=== PATIENT | male | born 1975 | race Caucasian/White ===

== ENCOUNTER → 2018-03-15 12:20 | Outpatient (CLI) | payer OTHER, SELFPAY ==
[2014-08-05 12:42] VITALS: BMI 29.7
--- NOTE | 2018-03-15 12:25 | RAD_ITS ---
HISTORY: CERVICALGIA, NKI COMPARISON: None FINDINGS: XR Spine Cervical 6 views Straightening of the cervical spine with mild reversal of the normal cervical lordosis at the C4-5 level. Cervical vertebra are normal in height. No fracture or suspicious bony lesion. C5-6 and C6-7 mild disc space narrowing. C5-6 foraminal narrowing on the right secondary to uncovertebral spurring. The C1-C2 relationship is unremarkable. RAD/Cerv Spine 4 or 5 Views IMPRESSION: 1. C5-6 and C6-7 degenerative disc disease with loss of the normal cervical lordosis. C5-6 foraminal narrowing on the right. at 0422 Reported and signed by: Lester Dougherty MD Electronically Signed: Lester Dougherty, at 4:20 EST Tel , Service support ,
--- OUTSIDE RECORDS SUMMARY | 2018-05-10 10:59 | XMS RPT_ITS ---
:1975 Author Organization [facility] Care Team Providers Name Role Phone Isaiah Asif Attending Unavailable Isaiah Asif Referring Unavailable Moody Tijerina Primary Care Unavailable Isaiah Asif Attending Unavailable Isaiah Asif Referring Unavailable Moody Tijerina Primary Care Unavailable PROBLEMS PROBLEMS No Problem Records FoundPROCEDURES PROCEDURES No Procedure Records FoundRESULTS RESULTS SPINE CERVICAL Observed: 04/01/2018 Status: F Source: [place] (ROUTINE) 11:08 AM [facility] REPOSITORY [facility] Imaging Services [address] [place] [address] Spine Cervical (Routine) MR#: [id number] Acct: [id number] Name: MARYLU TIJERINA Rep #: [id number] : 1975 M 43 From: Piotr King MD PCP: Moody Tijerina MD Status: REG CLI Study: Spine Cervical (Routine) Date of Exam: 04/01/18 Exam# [id number] Ordering Dr: Isaiah Asif MD STUDY: MRI CERVICAL SPINE WITHOUT CONTRAST REASON FOR EXAM: Male, 43 years old. Right arm pain and neck pain TECHNIQUE: Standardized fat and water weighted pulse sequences were obtained in the sagittal and axial planes. COMPARISON: None FINDINGS: Normal foramen magnum and brainstem-cervical cord junction. Normal craniovertebral junction. Normal anterior atlantoaxial articulation. Normal odontoid process. There is reversal of the normal cervical lordosis. Normal vertebral bodies and posterior osseous elements. C2-3: Normal endplates. Normal disc height, signal and morphology. Normal central canal and intervertebral neural foramina. C3-4: Normal endplates. Normal disc height, signal and morphology. Normal central canal and intervertebral neural foramina. C4-5: Normal endplates. Normal disc height, signal and morphology. Normal central canal and intervertebral neural foramina. C5-6: Disc osteophyte complex and central disc protrusion with deformity of the ventral cord, moderate central canal stenosis, and severe right and moderate left foraminal stenoses. C6-7: Disc osteophyte complex with severe right and mild left foraminal stenoses. C7-T1: Normal endplates. Normal disc height, signal and morphology. Normal central canal and intervertebral neural foramina. No intrinsic cord signal abnormalities are seen at this time. Normal visualized soft tissue structures. MRI/Spine Cervical (Routine) IMPRESSION: Multilevel degenerative disease as described. Severe right foraminal stenoses at the C5-6 and C6-7 levels. Ventral cord deformity at C5-6 level. No intrinsic cord signal abnormalities are seen at this time. Electronically Signed: Piotr King MD at 12:42 EST Tel , Service support , CC: Moody Tijerina MD; Isaiah Asif MD Electronic Design Engineer: Signed CERV SPINE 4 OR 5 Observed: 03/15/2018 Status: F Source: [place] VIEWS 12:25 PM [facility] REPOSITORY [facility] Imaging Services [address] [place] [address] Cerv Spine 4 or 5 Views MR#: [id number] Acct: [id number] Name: MARYLU TIJERINA Rep #: [id number] : 1975 M 43 From: Lester Dougherty MD PCP: Moody Tijerina MD Status: REG CLI Study: Cerv Spine 4 or 5 Views Date of Exam: 03/15/18 Exam# [id number] Ordering Dr: Isaiah Asif MD HISTORY: CERVICALGIA, NKI COMPARISON: None FINDINGS: XR Spine Cervical 6 views Straightening of the cervical spine with mild reversal of the normal cervical lordosis at the C4-5 level. Cervical vertebra are normal in height. No fracture or suspicious bony lesion. C5-6 and C6- 7 mild disc space narrowing. C5-6 foraminal narrowing on the right secondary to uncovertebral spurring. The C1-C2 relationship is unremarkable. RAD/Cerv Spine 4 or 5 Views IMPRESSION: 1. C5-6 and C6-7 degenerative disc disease with loss of the normal cervical lordosis. C5-6 foraminal narrowing on the right. at 0422 Reported and signed by: Lester Dougherty MD Electronically Signed: Lester Dougherty, at 4:20 EST Tel , Service support , CC: Moody Tijerina MD; Isaiah Asif MD Electronic Design Engineer: Signed ALLERGIES ALLERGIES DATE TYPE / CODE NAME / CODE REACTION SEVERITY SOURCE 08/05/2014 Drug No Known Unknown [facility] Allergy/4160 Allergies/F00 Hospital 06741(SNOMED [id number](RXNOR Repository CT) M) ENCOUNTERS ENCOUNTERS ADMIT/DISCHARGE ACCOUNT ADMITTING ENCOUNTER LOCATION SOURCE NUMBER CLASS 04/01/2018 [id number] Ambulatory [place] [facility] 2 [facility] ing:MRI Repository 03/15/2018 [id number] Ambulatory [place] 7 [facility] ing:MTRAD Repository PAYERS PAYERS ENCOUNTER GUARANTOR PAYER SUBSCRIBER SOURCE 04/01/2018 MARYLU Martinez Primary Insurance:[facility] Banerjee [id number] [employer] [facility] MILLERDOB: [facility] [id number] Number: Repository [id number]: [phone] [id number] [phone] (HP) Date:[id number] [address], [place] [address]RQ: CHECK WEBSITE 04/01/2018 Secondary NOT GIVENUNK [place] Insurance:SELF PAY [facility] Number: Effective Repository Date:2018-03-25 03/15/2018 MARYLU Martinez Primary Insurance:[facility] TIJERINA315 [facility]: [facility] 1773-26-[place], [place] Number: Repository [id number]: [phone] [id number] [phone] () Date:4189-20-31PA [address] [address], [place] [address]ET: CHECK WEBSITE 03/15/2018 Secondary NOT GIVENDILCIA Banerjee Insurance:SELF PAY [facility] Number: Effective Repository Date:2018-03-15
== END ==
PROVIDERS: Family Provider Family Medicine; PCP Family Medicine; Referring Provider Family Medicine; Visit Provider Family Medicine
DX: M54.2 Cervicalgia (principal)
CPT/HCPCS: 72050

== ENCOUNTER → 2018-04-01 10:51 | Outpatient (CLI) | payer OTHER, SELFPAY ==
--- NOTE | 2018-04-01 11:07 | MRI_ITS ---
STUDY: MRI CERVICAL SPINE WITHOUT CONTRAST REASON FOR EXAM: Male, 43 years old. Right arm pain and neck pain TECHNIQUE: Standardized fat and water weighted pulse sequences were obtained in the sagittal and axial planes. COMPARISON: None FINDINGS: Normal foramen magnum and brainstem-cervical cord junction. Normal craniovertebral junction. Normal anterior atlantoaxial articulation. Normal odontoid process. There is reversal of the normal cervical lordosis. Normal vertebral bodies and posterior osseous elements. C2-3: Normal endplates. Normal disc height, signal and morphology. Normal central canal and intervertebral neural foramina. C3-4: Normal endplates. Normal disc height, signal and morphology. Normal central canal and intervertebral neural foramina. C4-5: Normal endplates. Normal disc height, signal and morphology. Normal central canal and intervertebral neural foramina. C5-6: Disc osteophyte complex and central disc protrusion with deformity of the ventral cord, moderate central canal stenosis, and severe right and moderate left foraminal stenoses. C6-7: Disc osteophyte complex with severe right and mild left foraminal stenoses. C7-T1: Normal endplates. Normal disc height, signal and morphology. Normal central canal and intervertebral neural foramina. No intrinsic cord signal abnormalities are seen at this time. Normal visualized soft tissue structures. MRI/Spine Cervical (Routine) IMPRESSION: Multilevel degenerative disease as described. Severe right foraminal stenoses at the C5-6 and C6-7 levels. Ventral cord deformity at C5-6 level. No intrinsic cord signal abnormalities are seen at this time. Electronically Signed: Piotr King MD at 12:42 EST Tel , Service support ,
--- OUTSIDE RECORDS SUMMARY | 2018-07-03 23:54 | XMS RPT_ITS ---
:1975 Author Organization [facility] Care Team Providers Name Role Phone Isaiah Asif Attending Unavailable Isaiah Asif Referring Unavailable Moody Tijerina Primary Care Unavailable Isaiah Asif Attending Unavailable Isaiah Asif Referring Unavailable Moody Tijerina Primary Care Unavailable PROBLEMS PROBLEMS No Problem Records FoundPROCEDURES PROCEDURES No Procedure Records FoundRESULTS RESULTS SPINE CERVICAL Observed: 04/01/2018 Status: F Source: [place] (ROUTINE) 11:08 AM [facility] REPOSITORY [facility] Imaging Services [address] [place] [address] Spine Cervical (Routine) MR#: [id number] Acct: [id number] Name: MARYLU TIJERINA Rep #: [id number] : 1975 M 43 From: Piotr King MD PCP: Moody Tijerina MD Status: REG CLI Study: Spine Cervical (Routine) Date of Exam: 04/01/18 Exam# [id number] Ordering Dr: Isaiah Asif MD ADDENDUM by Piotr King MD on 04/04/18 at 0739 ADDENDUM Comparison study has been made available dated 01/18/2011. Degenerative disc disease at the C5-6 level is unchanged. Degenerative disc disease at the C6-7 level has progressed. There has been worsening of right-sided neural foraminal stenosis at that level compared to prior study. Electronically Signed: Piotr King MD at 7:39 EST Tel , Service support , 04/04/18 0739 Date cc: Moody Tijerina MD; Isaiah Asif MD * Signed ADDENDUM by Piotr King MD on 04/04/18 at 0739 MRI/Spine Cervical (Routine) 04/04/18 0745 Date cc: Moody Tijerina MD; Isaiah Asif MD * Signed STUDY: MRI CERVICAL SPINE WITHOUT CONTRAST REASON [...] CC: Moody Tijerina MD; Isaiah Asif MD Auto Body Technician: Signed CERV SPINE 4 OR 5 Observed: 03/15/2018 Status: F Source: [facility] 12:25 PM [facility] REPOSITORY [facility] Imaging Services [address] [place] [address] Cerv Spine 4 or 5 Views MR#: [id number] Acct: [id number] Name: MARYLU TIJERINA Juan Rep #: [id number] : 1975 M 43 From: Lester Dougherty MD PCP: Moody Tijerina MD Status: REG CLI Study: Cerv Spine 4 or 5 Views Date of Exam: 03/15/18 Exam# [id number] Ordering Dr: Isaiah Asif MD HISTORY: CERVICALGIA, [...] CC: Moody Tijerina MD; Isaiah Asif MD Auto Body Technician: Signed ALLERGIES ALLERGIES DATE TYPE / CODE NAME / CODE REACTION SEVERITY SOURCE 08/05/2014 Drug No Known Unknown [facility] Allergy/4160 Allergies/F00 Hospital 81524(SNOMED [id number](RXNOR Repository CT) M) ENCOUNTERS ENCOUNTERS ADMIT/DISCHARGE ACCOUNT ADMITTING ENCOUNTER LOCATION SOURCE NUMBER CLASS 04/01/2018 [id number] Ambulatory [place] 2 [facility] ing:MRI Repository 03/15/2018 [id number] Ambulatory [place] [facility] 7 [facility] ing:MTRAD Repository PAYERS PAYERS ENCOUNTER GUARANTOR PAYER SUBSCRIBER SOURCE 04/01/2018 MARYLU Martinez Primary Insurance:[facility] Banerjee [id number] [facility] 1708-48-[place] Number: Repository [id number]: 330 [id number] (HP) Date:4238-27-96FO [address] [address], [place] [address]NC: CHECK WEBSITE 04/01/2018 Secondary NOT GIVENUNK [place] Insurance:SELF PAY [facility] Number: Effective Repository Date:2018-03-25 03/15/2018 MARYLU Martinez Primary Insurance:[facility] TIJERINA315 [facility] [id number] Number: Repository [address]Wfx: 330 [id number] (HP) Date:1507-01-21PS [address] [address], [place] [address]MP: CHECK WEBSITE 03/15/2018 Secondary NOT GIVENUNK [place] Insurance:SELF PAY [facility] Number: Effective Repository Date:2018-03-15
== END ==
PROVIDERS: Family Provider Family Medicine; PCP Family Medicine; Referring Provider Family Medicine; Visit Provider Family Medicine
DX: R93.89 Abnormal findings on diagnostic imaging of other specified body structures (principal)
CPT/HCPCS: 72141

== ENCOUNTER 2018-09-02 08:30 | Outpatient (RCR) | payer OTHER, SELFPAY ==
--- NOTE | 2018-08-12 16:58 | HP.PTEVAL_ITS ---
Patient's Visit Information MARYLU TIJERINA is a 43 year old M referred to Physical Therapy by Zac Blanca MD with a diagnosis of CERVICAL STENOSIS.. Date of Evaluation: 08/12/18 Physical Therapist: Jody Montalvo PT, Cert MDT - Visit Plan Frequency: 2-3x /Week Duration: 4-6 Weeks Plan: POSTURE CORRECTION/STRENGTHENING, INSTRUCTION IN APPROPRIATE BODY MECHANICS AND ACTIVITY MODIFICATIONS. CERVICAL ISOMETRICS/ROM. JEFFRY UE ROM, STRETCHING AND STRENGTHENING. HEP INSTRUCTION. 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 CURRENTLY OFF WORK FOR NECK AND HAS BEEN OFF SINCE JULY 15 2018. Disability: NO. Present symptoms: JEFFRY SHOULDER PAIN LEFT > RIGHT. LEFT NECK/SHOULDER BLADE AREA BURNING. JEFFRY NECK ACHING. HEADACHES - INTERMITTENT NOW. Present since: YEARS. Pain Scale: Worst - 4/10 Least - 2/10. Currently: 2/10. Commenced as a result of: NO APPARENT REASON. Symptoms at onset: RIGHT SHOULDER. Worse: FIRST THING IN THE MORNING, FOLDING CLOTHES - TRYING TO PUT CHIN TO CHEST, STRETCHING NECK ANY DIRECTION, LIFTING/PUSHING/PULLING. Better: HEAT, MOVING AROUND IN MORNING, HOT SHOWER, MUSCLE RELAXER. HAS HYDROCODONE BUT NOT USING IT. Disturbed sleep: YES. Previous history/Previous treatment: CHIROPRACTOR - OFF AND ON FOR YEARS BUT NOT FOR ABOUT 8 YEARS. Dizziness: HAS HAPPENED TWICE GETTING UP FAST. Tinnitis: NO. Nausea: NO. Shortness of Breath: NO. Difficulty Swollowing: YES - GETTING BETTER. Gait: NORMAL. Accidents: NO. Unexplained weight loss: NO. Imaging: NO IMAGING SINCE THE SURGERY. NECK MRI BEFORE SURGERY: Severe right foraminal. stenoses at the C5-6 and C6-7 levels. Ventral cord deformity at C5-6. level. No intrinsic cord signal abnormalities are seen at this time. PMH/Recent major surgery: CHRONIC LBP - NO SURGERY - DID TRY PT HERE AT [facility]. HTN. PLOF (Prior Level of Function): HAS BEEN LIMITED IN LIFTING OVER-HEAD FOR A LONG TIME. 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 OTHER: PATIEN IS S/P ACDF JULY 16 2018. PATIENT REPORTS HE OVER DID IT TRYING TO WORK IN HIS WORKSHOP AFTER SURGERY AND HE WAS DOWN FOR ABOUT 3 DAYS. - Objective Sitting Posture/Standing Posture: POOR. PATIENT IS VERY SLOUCHED THORUGHOUT SESSION AND ONLY PARTIALLY ABLE TO CORRECT WITH CUEING. FORWARD HEAD, ROUNDED SHOULDERS AND ROUNDED BACK. Active Correction of posture: NE. Other Observations: INDEP GAIT AND TRANSFERS. Motor deficit: JEFFRY SHOULDER WEAKNESS GROSSLY 4/5 WITH MMT'ING BUT OTHERWISE GOOD STRENGTH. 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 PATIENT REPORTED A LONG HISTORY OF RIGHT UE SX'S BEFORE SX BUT MORE LEFT SHOULDER PAIN THAN RIGHT SINCE SURGERY. Sensory deficit: JEFFRY UE LIGHT TOUCH SENSATION INTACT AND SYMMETRICAL. ROM deficit: JEFFRY SHOULDER ELEVATION DECREASED BY ABOUT 10% FROM FULL ELEVATION. ARMS WERE TESTED ONE AT A TIME AND PATIENT DENIED PAIN WITH TESTING. INSTRUCTED PATIENT TO AVOID OVER HEAD REACHING WITH BOTH ARMS AT THE SAME TIME FOR NOW. Reflexes: JEFFRY UE'S 1/2. Dural Signs: NEGATIVE. Cervical Mvmt Loss: Flex: MIN. Pro: NIL. Ext: MOD. Ret: YOLI. RSB: MOD. LSB: MOD. R Rot: MOD. L Rot: YOLI. SOME INCREASED PAIN WITH CERVICAL ROM TESTING ALL PLANES ESPECIALLY LEFT ROTATION. Postural strength: POOR. OTHER: INCISION LOOKS GOOD WITHOUT ANY SIGNS OF INFECTION. - Goals Goal 1:: DECREASE C/O NECK/SHOULDER PAIN Goal Time Frame: 4-6 Weeks Goal 2:: IMPROVE LIFTING, WORK, RECREATIONAL, REACHING, PUSHING, PULLING, ADL AND SLEEP FUNCTION. Goal Time Frame: 4-6 Weeks Goal 3:: IMPROVE NECK FUNCTIONAL ROM Goal Time Frame: 4-6 Weeks Goal 4:: IMPROVE UPPER BODY FUNCTIONAL STRENGTH Goal Time Frame: 4-6 Weeks Goal 5:: INDEP HEP Goal Time Frame: 4-6 Weeks - Rehabilitation Potential Rehabilitation Potential: Fair - Anticipated Interventions Patient/Client Instruction: Educate patient on: Condition, Plan of Care, Risk Factors, Benefits of Fitness Program For the Purpose of:: To improve self management Therapeutic Exercise to Include: Strength training, Body mechanics, Postural training, Flexibilty training, Active ROM, Scapular Strength/Stabilization For the Purpose of:: To decrease pain, To increase ROM, To improve muscle performance and motor function, To increase tolerance to activity/condition/position, To improve ability of physical actions for home/community/work/leisure, To decrease soft tissue restriction Thank you for the opportunity to evaluate your patient. For Medicare and Medicare HMO plans, please review the plan of care and approve it. It will need to be FAXED BACK to us at [phone] for Medicare purposes. For Medicare only, by signing this I certify the plan of care. Please let me know if there are questions or concerns regarding this plan of care. Physician Signature: Date:
--- NOTE | 2018-09-02 09:26 | HP.PTDCSUM ---
HP - PT D/C Summary It has been my pleasure to treat MARYLU TIJERINA under orders from Zac Lezama MD, for the diagnosis of CERVICAL STENOSIS. for a total of 8 visit(s). Discharge Date: Please see the following information for a summary of their discharge status. - Subjective Subjective: PATIENT STATES I'M BETTER. ABOUT 5 DAYS AGO HAD TO TAKE OUT A PIPE WITH PIPE WRENCHES AND DID HAVE SOME NUMBNESS AND TINGLING IN DIGITS 3 AND 4 - WENT AWAY AN HOUR OR TWO LATER. ALSO ACHY SUNDAY BUT GONE OVER THE WEEKEND. PATIENT REPORTS HE FEELS LIKE HE CAN CONTINUE HIS EX'S INDEP'LY AT THIS POINT. 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 FOLLOW UP PENDING WITH DR. LEZAMA NEXT WEEK. - Pain Neck Pain Intensity (Out of 10): 0 - Overall Improvement % Improvement: 85 - Objective Objective/Function: PATIENT HAS MADE GREAT PROGRESS TOWARD ALL PHYSICAL THERAPY GOALS HOWEVER THIS PT CAUTIONED PATIENT AGAINST HEAVY WORK UNTIL CLEARED BY SURGEON AFTER X-RAYS NEXT WEEK. Sitting Posture/Standing Posture: POOR. PATIENT IS SLOUCHED THORUGHOUT SESSION BUT NOW ABLE TO FULLY CORRECT WITH CUEING. Other Observations: INDEP GAIT AND TRANSFERS. Motor deficit: PATIENT IS RIGHT HAND DOMINANT AND RIGHT RUBBER PROCESS HAND STRENGTH 140LBS, LEFT 140 LBS. ROM deficit: JEFFRY SHOULDER ROM IS FULL NOW AND NO C/O PAIN WITH TESTING. Cervical Mvmt Loss: Flex: NIL. Pro: NIL. Ext: MIN TO MOD. Ret: MOD. RSB: MOD. LSB: MOD. R Rot: MIN TO MOD. L Rot: MOD. LEFT ROTATION AND SB A LITTLE MORE LIMITED THAN RIGHT. ONLY TIGHTNESS REPORTED NOT PAIN WITH TESTING. Postural strength: FAIR. OTHER: INCISION LOOKS GOOD WITHOUT ANY SIGNS OF INFECTION. CERVICAL OSWESTRY SCORE HAS IMPROVED FROM 15 TO 7. - Goals Goal 1:: DECREASE C/O NECK/SHOULDER PAIN Goal Progress: Goal Met Goal 2:: IMPROVE LIFTING, WORK, RECREATIONAL, REACHING, PUSHING, PULLING, ADL AND SLEEP FUNCTION. Goal Progress: Goal Met Goal 3:: IMPROVE NECK FUNCTIONAL ROM Goal Progress: Goal Met Goal 4:: IMPROVE UPPER BODY FUNCTIONAL STRENGTH Goal Progress: Goal Met Goal 5:: INDEP HEP Goal Progress: Goal Met - Plan Plan: D/C TO INDEP HEP AND FOLLOW UP WITH SURGEON. - D/C Information If there are questions or concerns regarding this patient's physical therapy, please feel free to call me at [phone]. Thank you for the referral of this patient. Sincerely, Jody Montalvo PT, Cert MDT
== END 2018-09-02 19:00 | disposition home or self-care (01) ==
LOC: PT 08:30
PROVIDERS: Family Provider Family Medicine; PCP Family Medicine; Referring Provider Neurological Surgery; Visit Provider Neurological Surgery
DX: M48.02 Spinal stenosis, cervical region (principal)
CPT/HCPCS: 97110; 97162; 97530

== ENCOUNTER → 2018-09-03 10:25 | Outpatient (CLI) | payer OTHER, SELFPAY ==
[2014-08-05 12:42] VITALS: BMI 29.7
--- NOTE | 2018-09-03 10:29 | RAD_ITS ---
STUDY: X-RAY - CERVICAL SPINE REASON FOR EXAM: Male, 43 years old. Postoperative surgery TECHNIQUE: 4 view(s) of the cervical spine were obtained. COMPARISON: March 15, 2018 cervical spine x-ray FINDINGS: There are degenerative changes of the anterior atlantoaxial articulation. Normal odontoid process. There is straightening of the normal cervical lordosis. There is a spinal fusion with an anterior plate C5-C6. There is a disc spacer. Normal disc space heights. Normal visualized intervertebral neuroforamina. There is mild prevertebral soft tissue swelling at the level of the spinal fusion. RAD/Cerv Spine 2 or 3 Views IMPRESSION: Postoperative change. No evidence of acute loss of height or alignment. Electronically Signed: Taylor Hendricks MD at 2:22 EDT Tel , Service support ,
== END ==
PROVIDERS: Family Provider Family Medicine; PCP Family Medicine; Referring Provider Neurological Surgery; Visit Provider Neurological Surgery
DX: M48.02 Spinal stenosis, cervical region (principal)
CPT/HCPCS: 72040

== ENCOUNTER 2019-04-30 15:08 | Observation (INO) | payer OTHER, SELFPAY ==
[2019-04-30] VITALS (9 sets, daily range): BP systolic 104–176; BP diastolic 79–105; PULSE 63–116; RESP 16–22; TEMP 36.4–36.8; O2SAT 95–98; BMI 36.0; BMI 34.7
--- NOTE | 2019-04-30 15:21 | RAD_ITS ---
STUDY: X-RAY CHEST REASON FOR EXAM: Male, 44 years old. LEFT SIDE CHEST PAIN THAT STARTED THIS MORNING TECHNIQUE: Single AP portable view of the chest. COMPARISON: Comparison is made with prior study dated June 27, 2010. FINDINGS: EKG electrodes are seen. The lungs are clear and expanded. There is no demonstrated pleural abnormality. Normal size heart. Normal mediastinum and tahir. Normal visualized pulmonary arteries. Normal visualized aortic arch and descending thoracic aorta. Normal visualized thoracic spine. Normal visualized ribs, clavicles, and shoulders. There is no demonstrated abnormality of the visualized soft tissue structures of the upper abdomen. RAD/Chest 1 View (Portable) IMPRESSION: Normal x-ray examination of the chest. Electronically Signed: Mingo Whitehead, at 15:48 EST , Service support ,
--- NOTE | 2019-04-30 15:21 | EKG12_ITS ---
Test Reason : CP Blood Pressure : / mmHG Vent. Rate : 107 BPM Atrial Rate : 107 BPM P-R Int : 150 ms QRS Dur : 104 ms QT Int : 352 ms P-R-T Axes : 059 071 030 degrees QTc Int : 469 ms Sinus tachycardia Otherwise normal ECG Confirmed by MIL CARDENAS, JOYA ([id number]), movie editor EMBER FUENTES ([id number]) on 05/02/2019 10:05:19 AM Referred By: Isaiah Asif Confirmed By:GARRISON JAEGER MD
--- NOTE | 2019-04-30 15:23 | ED.DCSUM_ITS ---
- ER Visit Summary Date of Service: 04/30/19 Chief Complaint: [Chest pain History of Present Illness: The patient is a 44 M [presents with chest pain that started between 9 and 10 AM this morning. Patient states that it feels like a pinch but it can last for long periods of time. Patient states he just does not feel right. Patient has a history of GERD but this feels different. He at times feels somewhat sweaty but is not sure if that is because he is anxious. Patient has significant family history of heart disease and had a heart cath about 10 years ago that was normal. Patient has history of hypertension. Patient does not smoke and he denies illicit drug use. Patient had a cervical fusion in July 2018. No recent travel or surgery. Only he rates his pain a 4 5 out of 10 and it is left chest anterior without any radiation.] Physical Examination: [HEENT-PERRLA, EOMI. Cranial nerves II through XII grossly intact. TMs clear. Mucous membranes moist. No adenopathy. Cardiovascular-regular rate and rhythm without murmur or ectopy Lungs-clear to auscultation, chest wall stable without crepitus or subcu emphysema Abdomen-normoactive bowel sounds, soft, nontender, no rebound or rigidity, no peritoneal signs. Extremities-intact ?4, normal range of motion, normal pulses, atraumatic] Test Results: [EKG obtained on arrival showed sinus tachycardia with a ventricular rate of 107 bpm with no acute segment changes. CBC with it was normal. Chemistries unremarkable. BUN was 17 and creatinine 1.32. Troponin is less than 0.015. D-dimer was 0.238. Chest x-ray showed nothing acute.] Emergency Department Course and Treatment: [Placed on a computerized mill recorder on arrival. Patient given aspirin. Patient given sublingual nitro x3 with no significant improvement in his discomfort. Although on repeat examination he states that maybe does feel little bit better] Treatment Plan: [Admit for further work-up and evaluation of his chest pain] Disposition: [Admit] Impression: [Chest pain-rule out acute coronary syndrome] This note was generated with [employer]Card[employer] software. It may contain incorrect words, spelling, and punctuation that were not noted in review of the chart prior to signing ED Disposition - Plan for ED Patient: Referrals: Isaiah Asif MD [Primary Care Provider] -
[2019-04-30 15:45] LABS: Absolute Lymphocyte Count 3.12 X10^3/uL (0.83-4.51); Absolute Neutrophil Count 4.1 X10^3/uL (2.0-7.7); Basophil# 0.08 X10^3/uL; Eosinophil# 0.25 X10^3/uL; Eosinophils% 3.1 % (0-5); Hematocrit 45.7 % (40-54); Lymphocyte # 3.12 X10^3/ul (4.0); Lymphocyte % 38.2 % (19-41); Mean Corp Hgb Conc 32.8 g/dL (32-36); Mean Corpuscular Hgb 29.4 pg (27.0-32.0); Mean Corpuscular Volume 89.6 fL (80-94); Mean Platelet Vol. 11.1 fl (6.2-12.0); Monocyte# 0.61 X10^3/uL; Monocyte% 7.5 % (0-10); NRBC Flagged by Analyzer 0 % (0-5); Neutrophil # 4.08 X10^3/uL (2.7-7.7); Platelet Count 221 K/mm3 (150-450); RBC Distribution Width CV 12.3 % (11.6-14.6); RBC Distribution Width SD 40.9 fl (35.1-43.9); White Blood Count 8.2 K/mm3 (4.4-11.0)
[2019-04-30] MEDS: Aspirin 81 MG TAB.CHEW 324 MG PO (15:47)
[2019-04-30] MEDS: 0.9% Normal Saline 1,000 ML 150 ML IV (15:47)
[2019-04-30] MEDS: Nitroglycerin SL (ED/IMG/CATH) 0.4 MG TABLET SUBLINGUAL ×3 (15:48→16:00)
[2019-04-30 16:04] LABS: D-Dimer Quantitative (DVT/PE) 0.38 FEU/ug/m (0.27-0.49)
[2019-04-30 16:19] LABS: Anion Gap 4 (5-15); BUN 17 mg/dL (7-18); BUN/Creat Ratio 12.9 RATIO (10-20); Calcium,Total 9.2 mg/dL (8.5-10.1); Chloride 108 mmol/L (98-107); Creatinine, Serum 1.32 mg/dL (0.70-1.30); EST Glomerular Filtration Rate 62 mL/min (>60); Est Glom Filt Rate - Afr Amer 75 mL/min (>60); Estimated Creatinine Clearance 79.03 ml/min; Glucose 129 mg/dL (74-106); Potassium 3.9 mmol/L (3.5-5.1); Sodium Level 139 mmol/L (136-145)
--- NOTE | 2019-04-30 16:33 | HP.PCM_ITS ---
History of Present Illness Date of Admission: 04/30/19 Chief Complaint: chest pain The patient is a 44 year old M with a past medical history of hypertension, anxiety and GERD. He was admitted through the ED on 04/30/2019 with a complaint of chest pain. Pain started on the day of admission, with no aggravating or relieving factors. It was left-sided and pressure-like and did not radiate. He had no associated shortness of breath, palpitations or dizziness or lightheadedness. Review of systems is otherwise negative. Patient has a strong family history of heart disease and states his mother has had numerous bypass surgeries and father is also had a heart attack. He is also had uncles who had a heart attack. He had a cardiac cath 10 years ago on account of chest pain, findings of which were negative. He denies any history of DVT or PE. Rev iew of systems was otherwise negative. He has not had any recent long distance travel either. He does have a history of anxiety and patient states the chest pain made him very anxious which he thinks may have made the pain worse. On admission in the ED, vitals were significant for pulse rate of 111 and blood pressure 122/79 with respiratory of 16 and temperature of 98 Fahrenheit. Chest x-ray showed no acute cardiopulmonary process and chemistry showed creatinine of 1.32. Initial troponin was negative and CBC was unremarkable. He has been admitted to be managed for chest pain, to rule out ACS. [] Past Medical History Allergies No Known Allergies Allergy (Verified 04/30/19 15:31) Home Medications: Ambulatory Orders Medication Instructions Recorded Amlodipine [Norvasc] 5 mg PO DAILY 04/30/19 Benazepril HCl [Lotensin] 10 mg PO DAILY 04/30/19 Esomeprazole Magnesium 20 mg PO DAILY 04/30/19 Nortriptyline HCl [Pamelor] 25 mg PO QHS 04/30/19 Surgical History: no surgical history Lives: With Family Smoking Status: Former smoker - quit >15 years ago Alcohol: Occasional Drugs: None - *Family History Maternal History Items: Diabetes, Heart Disease, Hypertension Paternal History Items: Heart Disease Review of Systems Constitutional: Denies: Chills, Fever, Malaise, Weakness, Weight Change Eyes: Denies: Blurred vision HEENT: Denies: Head Aches, Sinus Congestion, Sinus Drainage Cardiovascular: Reports: Chest Pain, Chest Pressure. Denies: Chest Tightness, Edema, Heaviness, Light Headedness, Orthopnea, Palpitations Respiratory: Denies: Cough, Shortness of Breath, Shortness of breath at rest, Shortness of breath upon exertion, Sputum production Gastrointestinal: Denies: Abdominal Pain, Nausea, Vomiting Genitourinary: Denies: Dysuria Musculoskeletal: Denies: Joint Pain, Joint Tenderness Skin: Denies: Rash, Wounds Neurological: Denies: Numbness, Tingling, Focal weakness Psychiatric: Denies: Anxiety, Depression, Homicidal Ideations, Suicidal Ideations Hematologic/ Lymphatic: Denies: Easy Bruising, Easy Bleeding VTE Information - Inpt Only VTE Present on Admission: No VTE Pharm Prophylaxis ordered?: Yes - Physical Exam Vitals/I&O's: Vital Signs Temp Pulse Resp BP Pulse Ox 98.0 F 111 H 22 H 123/79 H 98 04/30/19 15:11 04/30/19 16:00 04/30/19 15:11 04/30/19 16:11 04/30/19 15:11 Oxygen Delivery Method Room Air Weight: 273 lb 2.444 oz Body Mass Index (BMI) 36.0 General: Alert, Oriented x3, Cooperative, No apparent distress HEENT: Atraumatic, PERRLA, EOMI, Normocephalic Oral: Moist Mucosa Neck: Supple, No JVD, Negative Carotid Bruits Lungs: Clear to auscultation, Normal air movement, No rhonchi, No wheeze, No rales Cardiovascular: Regular Rhythm, Normal S1, Normal S2, No murmurs, Tachycardic Abdomen: Bowel Sounds Present, Soft, Non Tender, Non-Distended, No Hepato- splenomegaly Extremities: No clubbing, No cyanosis, No edema, Capillary Refill Less than 3 Seconds Skin: No rashes, No breakdown Musculoskeletal: No Tenderness to Palpation of Joints or Extremities Lymphatic: No Cervical, Supraclavicular, or Inguinal Adenopathy Neurological: Cranial nerves II-XII grossly intact, Neuro grossly intact, Motor Exam 5/5 strength throughout Psych/Mental Status: Normal Affect, Appropriate, Alert and oriented to time, place, person, mood and affect Laboratory Results 04/30/19 15:15: WBC 8.2, RBC 5.10, Hgb 15.0, Hct 45.7, MCV 89.6, MCH 29.4, MCHC 32.8, RDW Std Deviation 40.9, RDW Coeff of Aydin 12.3, Plt Count 221, MPV 11.1, Immature Gran % (Auto) 0.200, Neut % (Auto) 50.0, Lymph % (Auto) 38.2, [place] % (Auto) 7.5, Eos % (Auto) 3.1, Baso % (Auto) 1.0, Absolute Neuts (auto) 4.1, Absolute Lymphs (auto) 3.12, Nucleated RBC % 0 04/30/19 15:15: Sodium 139, Potassium 3.9, Chloride 108 H, Carbon Dioxide 27.0, Anion Gap 4 L, BUN 17, Creatinine 1.32 H, Estim Creat Clear Calc 79.03, Est GFR (MDRD) Af Amer 75, Est GFR (MDRD) Non-Af 62, BUN/Creatinine Ratio 12.9, Glucose 129 H, Calcium 9.2, Troponin I < 0.015 04/30/19 15:15: D-Dimer Quant (PE/DVT) 0.38 Diagnostic Data Chest X-Ray 04/30/19 15:21 IMPRESSION: Normal x-ray examination of the chest. Electronically Signed: Mingo Ventura, at 15:48 EST , Service support , Current Medications Sodium Chloride () 1,000 mls @ 150 mls/hr IV .[id number] [facility] Last Admin: 04/30/19 15:47 Dose: 150 mls/hr Documented by: Assessment/Plan 44 y/o admitted with a complaint of chest pain, to r/o ACS 1. Chest pain, r/o ACS * Admit to PCU with telemetry. * Cycle troponins. Initial troponin was negative. * A1c and lipid panel. * Sublingual nitroglycerin as needed. P.o. aspirin 81 mg daily. * Stress test tomorrow if troponins are negative. * 2. Hypertension: Fairly controlled. On amlodipine and benazepril 3. Anxiety: On nortriptyline. DVT prophylaxis: Lovenox Code Visit OBSV E&M: 29209 Initial observation care L2
[2019-04-30 18:32] LABS: Cholesterol 170 mg/dL (200); High Density Lipoprotein 51 mg/dL; Triglycerides 149 mg/dL; Very Low Density Lipoprotein 30 mg/dL (5-40)
--- NOTE | 2019-04-30 21:03 | EKG12_ITS ---
Test Reason : CP ADMIT Blood Pressure : / mmHG Vent. Rate : 063 BPM Atrial Rate : 063 BPM P-R Int : 164 ms QRS Dur : 104 ms QT Int : 392 ms P-R-T Axes : 066 073 055 degrees QTc Int : 401 ms Normal sinus rhythm Normal ECG When compared with ECG of 30-APR-2019 15:12, MANUAL COMPARISON REQUIRED, DATA IS UNCONFIRMED Confirmed by MIL CARDENAS, JOYA ([id number]), supervising editor trailer [employer]ENT[employer] ([id number]) on 05/02/2019 10:12:56 AM Referred By: Isaiah Asif Confirmed By:GARRISON JAEGER MD
[2019-04-30] MEDS: Nortriptyline 25 MG Capsule PO (21:34)
[2019-05-01] VITALS (7 sets, daily range): BP systolic 115–123; BP diastolic 67–89; PULSE 63–94; RESP 16–17; TEMP 36.2–36.7; O2SAT 95–98
[2019-05-01] MEDS: Lisinopril 10 MG Tablet PO (05:18)
[2019-05-01] MEDS: Aspirin E.C. 81 MG Tablet PO (05:18)
[2019-05-01] MEDS: 0.9% Saline Lock 10 ML Syringe IV (05:19)
--- NOTE | 2019-05-01 05:55 | EKG12_ITS ---
Test Reason : AM EKG Blood Pressure : / mmHG Vent. Rate : 059 BPM Atrial Rate : 059 BPM P-R Int : 166 ms QRS Dur : 106 ms QT Int : 410 ms P-R-T Axes : 031 067 046 degrees QTc Int : 405 ms Sinus bradycardia Otherwise normal ECG When compared with ECG of 30-APR-2019 21:16, MANUAL COMPARISON REQUIRED, DATA IS UNCONFIRMED Confirmed by MIL CARDENAS, JOYA ([id number]), editor magazine [employer] ([id number]) on 05/02/2019 10:10:20 AM Referred By: Isaiah Asif Confirmed By:GARRISON JAEGER MD
[2019-05-01 06:31] LABS: Absolute Lymphocyte Count 2.59 X10^3/uL (0.83-4.51); Absolute Neutrophil Count 2.7 X10^3/uL (2.0-7.7); Basophil# 0.08 X10^3/uL; Basophil% 1.3 % (0-1); Eosinophil# 0.21 X10^3/uL; Eosinophils% 3.5 % (0-5); Hematocrit 44.4 % (40-54); Hemoglobin 14.6 g/dL (13.0-16.5); Lymphocyte # 2.59 X10^3/ul (4.0); Lymphocyte % 42.6 % (19-41); Mean Corp Hgb Conc 32.9 g/dL (32-36); Mean Corpuscular Volume 91.4 fL (80-94); Mean Platelet Vol. 10.9 fl (6.2-12.0); Monocyte# 0.51 X10^3/uL; Monocyte% 8.4 % (0-10); NRBC Flagged by Analyzer 0 % (0-5); Neutrophil # 2.68 X10^3/uL (2.7-7.7); Platelet Count 204 K/mm3 (150-450); RBC Distribution Width CV 12.4 % (11.6-14.6); RBC Distribution Width SD 41.2 fl (35.1-43.9); Red Blood Count 4.86 M/mm3 (4.6-6.2); White Blood Count 6.1 K/mm3 (4.4-11.0)
[2019-05-01 07:03] LABS: Anion Gap 5 (5-15); BUN 18 mg/dL (7-18); BUN/Creat Ratio 16.5 RATIO (10-20); Calcium,Total 8.7 mg/dL (8.5-10.1); Chloride 109 mmol/L (98-107); Creatinine, Serum 1.09 mg/dL (0.70-1.30); EST Glomerular Filtration Rate 77 mL/min (>60); Est Glom Filt Rate - Afr Amer 94 mL/min (>60); Estimated Creatinine Clearance 98.46 ml/min; Glucose 101 mg/dL (74-106); Potassium 4.1 mmol/L (3.5-5.1); Sodium Level 139 mmol/L (136-145)
[2019-05-01] MEDS: amLODIPine 5 MG Tablet PO (10:22)
[2019-05-01] MEDS: Pantoprazole Sodium 20 MG Tablet PO (10:23)
--- NOTE | 2019-05-01 11:40 | DCINST_ITS ---
Allergies/Adverse Reactions: Allergies No Known Allergies Allergy (Verified 04/30/19 15:31) Medications to take at Discharge Amlodipine [Norvasc] 5 mg PO DAILY 04/30/19 Benazepril HCl [Lotensin] 10 mg PO DAILY 04/30/19 Esomeprazole Magnesium 20 mg PO DAILY 04/30/19 Nortriptyline HCl [Pamelor] 25 mg PO QHS 04/30/19 Primary Care Physician: Isaiah Asif MD [Primary Care Provider] - Test Results: Test results from this visit will be discussed in further detail at your follow- up appointment, if applicable.
--- NOTE | 2019-05-01 12:04 | DS.PCM_ITS ---
Discharge Date and Diagnosis Date of Admission: 04/30/19 Date of Discharge: 05/01/19 Hospital Course and Treatment Imaging Results: 05/01/19 05:55 Nuclear Stress Test - Treadmil [NM] AM (NON MEDS) Summary of Care Provided: The patient is a 44 year old M [] - Physical Exam Vitals/I&O's: Vital Signs Temp Pulse Resp BP Pulse Ox 98.0 F 92 17 115/81 H 95 05/01/19 10:18 05/01/19 11:07 05/01/19 10:18 05/01/19 10:18 05/01/19 10:18 Oxygen Delivery Method Room Air Weight: 270 lb 4.587 oz Body Mass Index (BMI) 34.7 Intake and Output for Last 24 Hours 04/29/19 04/30/19 05/01/19 23:59 23:59 23:59 Intake Total 362.5 / 962.5 600 / 600 Balance 362.5 / 962.5 600 / 600 Laboratory Results 04/30/19 15:15: WBC 8.2, RBC 5.10, Hgb 15.0, Hct 45.7, MCV 89.6, MCH 29.4, MCHC 32.8, RDW Std Deviation 40.9, RDW Coeff of Aydin 12.3, Plt Count 221, MPV 11.1, Immature Gran % (Auto) 0.200, Neut % (Auto) 50.0, Lymph % (Auto) 38.2, [place] % (Auto) 7.5, Eos % (Auto) 3.1, Baso % (Auto) 1.0, Absolute Neuts (auto) 4.1, Absolute Lymphs (auto) 3.12, Nucleated RBC % 0 04/30/19 15:15: Sodium 139, Potassium 3.9, Chloride 108 H, Carbon Dioxide 27.0, Anion Gap 4 L, BUN 17, Creatinine 1.32 H, Estim Creat Clear Calc 79.03, Est GFR (MDRD) Af Amer 75, Est GFR (MDRD) Non-Af 62, BUN/Creatinine Ratio 12.9, Glucose 129 H, Calcium 9.2, Troponin I < 0.015 04/30/19 15:15: D-Dimer Quant (PE/DVT) 0.38 04/30/19 15:15: Triglycerides 149, Cholesterol 170, LDL Cholesterol 89, VLDL Cholesterol 30, HDL Cholesterol 51 04/30/19 18:46: Troponin I < 0.015 04/30/19 20:58: Troponin I < 0.015 05/01/19 05:39: WBC 6.1, RBC 4.86, Hgb 14.6, Hct 44.4, MCV 91.4, MCH 30.0, MCHC 32.9, RDW Std Deviation 41.2, RDW Coeff of Aydin 12.4, Plt Count 204, MPV 10.9, Immature Gran % (Auto) 0.200, Neut % (Auto) 44.0 L, Lymph % (Auto) 42.6 H, [place] % (Auto) 8.4, Eos % (Auto) 3.5, Baso % (Auto) 1.3 H, Absolute Neuts (auto) 2.7, Absolute Lymphs (auto) 2.59, Nucleated RBC % 0 05/01/19 05:39: Sodium 139, Potassium 4.1, Chloride 109 H, Carbon Dioxide 25.0, Anion Gap 5, BUN 18, Creatinine 1.09, Estim Creat Clear Calc 98.46, Est GFR (MDRD) Af Amer 94, Est GFR (MDRD) Non-Af 77, BUN/Creatinine Ratio 16.5, Glucose 101, Calcium 8.7 Current Medications Acetaminophen (Tylenol) 650 mg PO Q6H PRN PRN PRN Reason: Pain Score 1-3/Temp > 100.7 F Amlodipine Besylate (Norvasc) 5 mg PO DAILY [facility] Last Admin: 05/01/19 10:22 Dose: 5 mg Documented by: Aspirin (Ecotrin) 81 mg PO DAILY@0800 [facility] Last Admin: 05/01/19 05:18 Dose: 81 mg Documented by: Enoxaparin Sodium (Lovenox) 40 mg SC DAILY [facility] Last Admin: 05/01/19 09:42 Dose: Not Given Documented by: Glucagon () 1 mg IM .X1 PRN PRN Reason: Hypoglycemia Dextrose (Dextrose 10%-Water) 250 mls @ 999 mls/hr IV .Q16M PRN; Protocol PRN Reason: HYPOGLYCEMIA Lisinopril (Zestril) 10 mg PO DAILY [facility] Last Admin: 05/01/19 05:18 Dose: 10 mg Documented by: Nitroglycerin (Nitrostat) 0.4 mg SUBLINGUAL Q5M PRN PRN Reason: CARDIAC/CHEST PAIN Nortriptyline HCl (Pamelor) 25 mg PO QHS [facility] Last Admin: 04/30/19 21:34 Dose: 25 mg Documented by: Ondansetron HCl (Zofran) 4 mg IV Q8H PRN PRN PRN Reason: NAUSEA/VOMITING Pantoprazole Sodium (Protonix) 20 mg PO DAILY [facility] Last Admin: 05/01/19 10:23 Dose: 20 mg Documented by: Sodium Chloride () 10 - 40 ml IV UD PRN PRN Reason: SALINE FLUSH Last Admin: 05/01/19 05:19 Dose: 10 ml Documented by: Home Medications: Medications to take at Discharge Amlodipine [Norvasc] 5 mg PO DAILY 04/30/19 Benazepril HCl [Lotensin] 10 mg PO DAILY 04/30/19 Esomeprazole Magnesium 20 mg PO DAILY 04/30/19 Nortriptyline HCl [Pamelor] 25 mg PO QHS 04/30/19 Primary Care Physician: Isaiah Asif MD [Primary Care Provider] - Medical Necessity - Tobacco Use Smoking Status: Never smoker Tobacco Use: Non-smoker
--- NOTE | 2019-05-01 14:51 | STRESSREP_ITS ---
Stress Test Report Date: 05/01/2019 Procedure: Exercise tolerance test/imaging study Indications: Chest pain Consent: Per the patient Procedure: The patient exercised on a Arvind protocol for 9 minutes and 1 second achieving a peak heart rate of 176 bpm (101 % predicted maximal heart rate) with a peak blood pressure 164/80 mmHg and a peak MET capacity of 10.1 METs. The baseline ECG demonstrated normal sinus rhythm. The peak exercise ECG demonstrated sinus tachycardia with no significant ischemic changes. EKG during recovery revealed no significant ischemic changes [There were no cardiac dysrhythmias pretest, during exercise, or recovery]. The functional capacity was considered normal for age. There was [no complaint of chest discomfort during exercise or recovery]. The examination was discontinued secondary to leg discomfort. Impression: 1. Technically adequate (percent predicted maximal heart rate greater than 85%) exercise tolerance test 2. Stress test is negative for exercise-induced EKG changes of ischemia 3. The test test is negative for exercise-induced chest pain 4. Functional capacity is normal for age 5. Nuclear images pending Myocardial perfusion imaging study: Technique: The patient was injected with 14.7 mCi of technetium 99m Cardiolite and subsequently rest SPECT Cardiolite nuclear imaging was obtained in the horizontal long, vertical long, and short axis views. The patient exercised on a Arvind protocol. Please see above for details. The patient was injected with 44.8 mCi of technetium 99m Cardiolite and subsequently stress SPECT Cardiolite nuclear imaging was obtained in the horizontal long, vertical long, and short axis views. A gated Cardiolite study at peak stress was obtained. Interpretation: Rest and stress SPECT Cardiolite nuclear imaging status post realignment, normalization, and attenuation correction, demonstrates no significant fixed or reversible defects suggestive of significant ischemia or infarction. The gated Cardiolite study demonstrates no significant regional wall motion abnormalities. The reported LVEF is 65 %. Impression: 1. There is no evidence of significant ischemia or infarction. 2. The gated Cardiolite study reports an LVEF of 65 %. This note was generated with [employer] software. It may contain incorrect words, spelling, and punctuation that were not noted in checking the note before signing.
--- NOTE | 2019-05-01 15:02 | DCINST_ITS ---
You will use the following diet at home:: No restrictions Discharge Activity: Return to Normal Activity Call your doctor if you observe: Shortness of breath, Dizziness, Fainting spells, Chest pain Allergies/Adverse Reactions: Allergies No Known Allergies Allergy (Verified 04/30/19 15:31) Medications to take at Discharge Amlodipine [Norvasc] 5 mg PO DAILY 04/30/19 Benazepril HCl [Lotensin] 10 mg PO DAILY 04/30/19 Esomeprazole Magnesium 20 mg PO DAILY 04/30/19 Nortriptyline HCl [Pamelor] 25 mg PO QHS 04/30/19 Primary Care Physician: Isaiah Asif MD [Primary Care Provider] - Please follow up with your Primary Care Physician in: 1 Week Test Results: Test results from this visit will be discussed in further detail at your follow- up appointment, if applicable. Proposed Discharge Date: 05/01/19
--- NOTE | 2019-05-01 15:03 | DS.PCM_ITS ---
<Ciara Perry - Last Filed: 05/01/19 15:07> Discharge Date and Diagnosis Date of Admission: 04/30/19 Date of Discharge: 05/01/19 - Primary Discharge Diagnosis 1. Chest pain, ACS ruled out 2. Hypertension 3. GERD 4. Anxiety Hospital Course and Treatment Imaging Results: Diagnostic Data Chest X-Ray 04/30/19 15:21 IMPRESSION: Normal x-ray examination of the chest. Electronically Signed: Mingo Whitehead, at 15:48 EST , Service support , Operations: None Procedures: Stress test Summary of Care Provided: The patient is a 44 year old M admitted 04/30/2019 due to chest pain. 1. Chest pain, ACS ruled out-troponin negative. EKG without ST-T changes. Patient underwent nuclear stress test which was negative for ischemia, LVEF 65%. Cardiac etiology ruled out. Follow-up with primary care physician in 1 week. Suspect musculoskeletal in nature. 2. Hypertension-stable, continue amlodipine and benazepril regimen. 3. GERD-continue esomeprazole regimen. 4. Anxiety-continue home nortriptyline regimen. Patient seen and examined prior to discharge. Physical assessment as noted below. Patient is stable for discharge with follow up recommendations as noted above. This patient was seen by [address] under the supervision of Dr. Hsieh. - Physical Exam Vitals/I&O's: Vital Signs Temp Pulse Resp BP Pulse Ox 98.0 F 92 17 115/81 H 95 05/01/19 10:18 05/01/19 11:07 05/01/19 10:18 05/01/19 10:18 05/01/19 10:18 Oxygen Delivery Method Room Air Weight: 270 lb 4.587 oz Body Mass Index (BMI) 34.7 Intake and Output for Last 24 Hours 04/29/19 04/30/19 05/01/19 23:59 23:59 23:59 Intake Total 362.5 / 962.5 600 / 600 Balance 362.5 / 962.5 600 / 600 General: Alert, Oriented x3, Cooperative HEENT: Atraumatic, PERRLA, EOMI, Normocephalic Neck: Supple, No JVD, Negative Carotid Bruits Lungs: Clear to auscultation, Normal air movement Cardiovascular: Regular rate, Regular Rhythm, Normal S1, Normal S2, No murmurs Abdomen: Bowel Sounds Present, Soft, Non Tender, Non-Distended Extremities: No clubbing, No cyanosis, No edema, Capillary Refill Less than 3 Seconds Skin: No rashes, No breakdown Musculoskeletal: No Tenderness to Palpation of Joints or Extremities Neurological: Cranial nerves II-XII grossly intact, Neuro grossly intact Psych/Mental Status: Normal Affect, Appropriate Laboratory Results 04/30/19 15:15: WBC 8.2, RBC 5.10, Hgb 15.0, Hct 45.7, MCV 89.6, MCH 29.4, MCHC 32.8, RDW Std Deviation 40.9, RDW Coeff of Aydin 12.3, Plt Count 221, MPV 11.1, Immature Gran % (Auto) 0.200, Neut % (Auto) 50.0, Lymph % (Auto) 38.2, [place] % (Auto) 7.5, Eos % (Auto) 3.1, Baso % (Auto) 1.0, Absolute Neuts (auto) 4.1, Absolute Lymphs (auto) 3.12, Nucleated RBC % 0 04/30/19 15:15: Sodium 139, Potassium 3.9, Chloride 108 H, Carbon Dioxide 27.0, Anion Gap 4 L, BUN 17, Creatinine 1.32 H, Estim Creat Clear Calc 79.03, Est GFR (MDRD) Af Amer 75, Est GFR (MDRD) Non-Af 62, BUN/Creatinine Ratio 12.9, Glucose 129 H, Calcium 9.2, Troponin I < 0.015 04/30/19 15:15: D-Dimer Quant (PE/DVT) 0.38 04/30/19 15:15: Triglycerides 149, Cholesterol 170, LDL Cholesterol 89, VLDL Cholesterol 30, HDL Cholesterol 51 04/30/19 18:46: Troponin I < 0.015 04/30/19 20:58: Troponin I < 0.015 05/01/19 05:39: WBC 6.1, RBC 4.86, Hgb 14.6, Hct 44.4, MCV 91.4, MCH 30.0, MCHC 32.9, RDW Std Deviation 41.2, RDW Coeff of Aydin 12.4, Plt Count 204, MPV 10.9, Immature Gran % (Auto) 0.200, Neut % (Auto) 44.0 L, Lymph % (Auto) 42.6 H, [place] % (Auto) 8.4, Eos % (Auto) 3.5, Baso % (Auto) 1.3 H, Absolute Neuts (auto) 2.7, Absolute Lymphs (auto) 2.59, Nucleated RBC % 0 05/01/19 05:39: Sodium 139, Potassium 4.1, Chloride 109 H, Carbon Dioxide 25.0, Anion Gap 5, BUN 18, Creatinine 1.09, Estim Creat Clear Calc 98.46, Est GFR (MDRD) Af Amer 94, Est GFR (MDRD) Non-Af 77, BUN/Creatinine Ratio 16.5, Glucose 101, Calcium 8.7 Current Medications Acetaminophen (Tylenol) 650 mg PO Q6H PRN PRN PRN Reason: Pain Score 1-3/Temp > 100.7 F Amlodipine Besylate (Norvasc) 5 mg PO DAILY [facility] Last Admin: 05/01/19 10:22 Dose: 5 mg Documented by: Aspirin (Ecotrin) 81 mg PO DAILY@0800 [facility] Last Admin: 05/01/19 05:18 Dose: 81 mg Documented by: Enoxaparin Sodium (Lovenox) 40 mg SC DAILY [facility] Last Admin: 05/01/19 09:42 Dose: Not Given Documented by: Glucagon () 1 mg IM .X1 PRN PRN Reason: Hypoglycemia Dextrose (Dextrose 10%-Water) 250 mls @ 999 mls/hr IV .Q16M PRN; Protocol PRN Reason: HYPOGLYCEMIA Lisinopril (Zestril) 10 mg PO DAILY [facility] Last Admin: 05/01/19 05:18 Dose: 10 mg Documented by: Nitroglycerin (Nitrostat) 0.4 mg SUBLINGUAL Q5M PRN PRN Reason: CARDIAC/CHEST PAIN Nortriptyline HCl (Pamelor) 25 mg PO QHS [facility] Last Admin: 04/30/19 21:34 Dose: 25 mg Documented by: Ondansetron HCl (Zofran) 4 mg IV Q8H PRN PRN PRN Reason: NAUSEA/VOMITING Pantoprazole Sodium (Protonix) 20 mg PO DAILY [facility] Last Admin: 05/01/19 10:23 Dose: 20 mg Documented by: Sodium Chloride () 10 - 40 ml IV UD PRN PRN Reason: SALINE FLUSH Last Admin: 05/01/19 05:19 Dose: 10 ml Documented by: Discharge Diet: No Restrictions Discharge Activity: Return to Normal Activity Call your doctor if you observe: Shortness of breath, Dizziness, Fainting spells, Chest pain Home Medications: Medications to take at Discharge Amlodipine [Norvasc] 5 mg PO DAILY 04/30/19 Benazepril HCl [Lotensin] 10 mg PO DAILY 04/30/19 Esomeprazole Magnesium 20 mg PO DAILY 04/30/19 Nortriptyline HCl [Pamelor] 25 mg PO QHS 04/30/19 Primary Care Physician: Isaiah Asif MD [Primary Care Provider] - Please follow up with your Primary Care Physician in: 1 Week Disposition: Home Minutes spent on discharge:: 35 Patient Condition:: Stable Medical Necessity - Tobacco Use Smoking Status: Never smoker Tobacco Use: Non-smoker Meaningful Use Info Meaningful Use Diagnoses (Choose all that apply): None applicable <Rowdy Hsieh - Last Filed: 05/01/19 15:44> Hospital Course and Treatment Summary of Care Provided: This patient was seen in conjunction with Ciara FALCON. I have independently interviewed and examined the patient and reviewed pertinent history, examination findings, laboratory and plan of management. I have reviewed the note and agree with the documented findings with the few additional points. In brief, patient is admitted for atypical chest pain, burning in nature with no aggravating or relieving factor. Serial troponin enzymes were negative. EKG with no significant ischemic changes. Patient had nuclear stress test which was negative for ischemia. It seems patient has chest pain most likely from GERD/dyspepsia. Patient takes [id number] PPI, his esomeprazole. Patient blood pressure is controlled. Fasting profile within normal limit, triglyceride 149, LDL 89, HDL 51. Advised lipid control diet. Discharge medication reconciliation done. Discharge follow-up instructions completed. Discharge process discussed with the patient and all questions were answered to patient's satisfaction. I have discussed my assessment with Ciara FALCON and orders have been reviewed. [] Laboratory Results 04/30/19 15:15: WBC 8.2, RBC 5.10, Hgb 15.0, Hct 45.7, MCV 89.6, MCH 29.4, MCHC 32.8, RDW Std Deviation 40.9, RDW Coeff of Aydin 12.3, Plt Count 221, MPV 11.1, Immature Gran % (Auto) 0.200, Neut % (Auto) 50.0, Lymph % (Auto) 38.2, [place] % (Auto) 7.5, Eos % (Auto) 3.1, Baso % (Auto) 1.0, Absolute Neuts (auto) 4.1, Absolute Lymphs (auto) 3.12, Nucleated RBC % 0 04/30/19 15:15: Sodium 139, Potassium 3.9, Chloride 108 H, Carbon Dioxide 27.0, Anion Gap 4 L, BUN 17, Creatinine 1.32 H, Estim Creat Clear Calc 79.03, Est GFR (MDRD) Af Amer 75, Est GFR (MDRD) Non-Af 62, BUN/Creatinine Ratio 12.9, Glucose 129 H, Calcium 9.2, Troponin I < 0.015 04/30/19 15:15: D-Dimer Quant (PE/DVT) 0.38 04/30/19 15:15: Triglycerides 149, Cholesterol 170, LDL Cholesterol 89, VLDL Cholesterol 30, HDL Cholesterol 51 04/30/19 18:46: Troponin I < 0.015 04/30/19 20:58: Troponin I < 0.015 05/01/19 05:39: WBC 6.1, RBC 4.86, Hgb 14.6, Hct 44.4, MCV 91.4, MCH 30.0, MCHC 32.9, RDW Std Deviation 41.2, RDW Coeff of Aydin 12.4, Plt Count 204, MPV 10.9, Immature Gran % (Auto) 0.200, Neut % (Auto) 44.0 L, Lymph % (Auto) 42.6 H, [place] % (Auto) 8.4, Eos % (Auto) 3.5, Baso % (Auto) 1.3 H, Absolute Neuts (auto) 2.7, Absolute Lymphs (auto) 2.59, Nucleated RBC % 0 05/01/19 05:39: Sodium 139, Potassium 4.1, Chloride 109 H, Carbon Dioxide 25.0, Anion Gap 5, BUN 18, Creatinine 1.09, Estim Creat Clear Calc 98.46, Est GFR (MDRD) Af Amer 94, Est GFR (MDRD) Non-Af 77, BUN/Creatinine Ratio 16.5, Glucose 101, Calcium 8.7 Subjective: Seen and examined. Patient's Mrs. Lucy Huff present in the room. Complain of pain which more likely acid reflux/burning in characteristic. It radiates to throat. No associated shortness of breath. Chest pain not related with activity or no aggravating or relating factor - Physical Exam Vitals/I&O's: Vital Signs Temp Pulse Resp BP Pulse Ox 97.6 F L 92 17 117/81 H 98 05/01/19 15:16 05/01/19 15:16 05/01/19 15:16 05/01/19 15:16 05/01/19 15:16 Oxygen Delivery Method Room Air Weight: 270 lb 4.587 oz Body Mass Index (BMI) 34.7 Intake and Output for Last 24 Hours 04/29/19 04/30/19 05/01/19 23:59 23:59 23:59 Intake Total 362.5 / 962.5 1250 / 1250 Balance 362.5 / 962.5 1250 / 1250 General: Alert, Oriented x3, Cooperative HEENT: Atraumatic, PERRLA, EOMI, Normocephalic Neck: Supple, No JVD, Negative Carotid Bruits Lungs: Clear to auscultation, Normal air movement, No rhonchi, No wheeze, No rales Cardiovascular: Regular rate, Regular Rhythm, Normal S1, Normal S2, No murmurs Abdomen: Bowel Sounds Present, Soft, Non Tender, Non-Distended Extremities: No edema, Capillary Refill Less than 3 Seconds Skin: No rashes, No breakdown Musculoskeletal: No Tenderness to Palpation of Joints or Extremities Neurological: Cranial nerves II-XII grossly intact Psych/Mental Status: Normal Affect, Appropriate Laboratory Results 04/30/19 15:15: WBC 8.2, RBC 5.10, Hgb 15.0, Hct 45.7, MCV 89.6, MCH 29.4, MCHC 32.8, RDW Std Deviation 40.9, RDW Coeff of Aydin 12.3, Plt Count 221, MPV 11.1, Immature Gran % (Auto) 0.200, Neut % (Auto) 50.0, Lymph % (Auto) 38.2, [place] % (Auto) 7.5, Eos % (Auto) 3.1, Baso % (Auto) 1.0, Absolute Neuts (auto) 4.1, Absolute Lymphs (auto) 3.12, Nucleated RBC % 0 04/30/19 15:15: Sodium 139, Potassium 3.9, Chloride 108 H, Carbon Dioxide 27.0, Anion Gap 4 L, BUN 17, Creatinine 1.32 H, Estim Creat Clear Calc 79.03, Est GFR (MDRD) Af Amer 75, Est GFR (MDRD) Non-Af 62, BUN/Creatinine Ratio 12.9, Glucose 129 H, Calcium 9.2, Troponin I < 0.015 04/30/19 15:15: D-Dimer Quant (PE/DVT) 0.38 04/30/19 15:15: Triglycerides 149, Cholesterol 170, LDL Cholesterol 89, VLDL Cholesterol 30, HDL Cholesterol 51 04/30/19 18:46: Troponin I < 0.015 04/30/19 20:58: Troponin I < 0.015 05/01/19 05:39: WBC 6.1, RBC 4.86, Hgb 14.6, Hct 44.4, MCV 91.4, MCH 30.0, MCHC 32.9, RDW Std Deviation 41.2, RDW Coeff of Aydin 12.4, Plt Count 204, MPV 10.9, Immature Gran % (Auto) 0.200, Neut % (Auto) 44.0 L, Lymph % (Auto) 42.6 H, [place] % (Auto) 8.4, Eos % (Auto) 3.5, Baso % (Auto) 1.3 H, Absolute Neuts (auto) 2.7, Absolute Lymphs (auto) 2.59, Nucleated RBC % 0 05/01/19 05:39: Sodium 139, Potassium 4.1, Chloride 109 H, Carbon Dioxide 25.0, Anion Gap 5, BUN 18, Creatinine 1.09, Estim Creat Clear Calc 98.46, Est GFR (MDRD) Af Amer 94, Est GFR (MDRD) Non-Af 77, BUN/Creatinine Ratio 16.5, Glucose 101, Calcium 8.7 Current Medications Acetaminophen (Tylenol) 650 mg PO Q6H PRN PRN PRN Reason: Pain Score 1-3/Temp > 100.7 F Amlodipine Besylate (Norvasc) 5 mg PO DAILY [facility] Last Admin: 05/01/19 10:22 Dose: 5 mg Documented by: Aspirin (Ecotrin) 81 mg PO DAILY@0800 [facility] Last Admin: 05/01/19 05:18 Dose: 81 mg Documented by: Enoxaparin Sodium (Lovenox) 40 mg SC DAILY [facility] Last Admin: 05/01/19 09:42 Dose: Not Given Documented by: Glucagon () 1 mg IM .X1 PRN PRN Reason: Hypoglycemia Dextrose (Dextrose 10%-Water) 250 mls @ 999 mls/hr IV .Q16M PRN; Protocol PRN Reason: HYPOGLYCEMIA Lisinopril (Zestril) 10 mg PO DAILY [facility] Last Admin: 05/01/19 05:18 Dose: 10 mg Documented by: Nitroglycerin (Nitrostat) 0.4 mg SUBLINGUAL Q5M PRN PRN Reason: CARDIAC/CHEST PAIN Nortriptyline HCl (Pamelor) 25 mg PO QHS [facility] Last Admin: 04/30/19 21:34 Dose: 25 mg Documented by: Ondansetron HCl (Zofran) 4 mg IV Q8H PRN PRN PRN Reason: NAUSEA/VOMITING Pantoprazole Sodium (Protonix) 20 mg PO DAILY [facility] Last Admin: 05/01/19 10:23 Dose: 20 mg Documented by: Sodium Chloride () 10 - 40 ml IV UD PRN PRN Reason: SALINE FLUSH Last Admin: 05/01/19 05:19 Dose: 10 ml Documented by: Code Visit OBSV E&M: [id number] Observation care discharge
--- NOTE | 2019-05-01 15:10 | CHAPLAIN ---
Type of Pastoral Visit _x__ Initial Visit ___ Follow-up Visit ___ On-call Visit ___ General Patient Visit ___ Spiritual Assessment ___ Family Conference ___ Bereavement ___ Rapid Response ___ Code Blue ___ Other (describe below) Pastoral Care Referral From _x__ Patient _x__ Family ___ Nurse ___ Physician ___ Primer Press Operator ___ Autocad Detailer ___ Other (describe below) Sacrament/Intervention _x__ Active listening ___ Anointing ___ Jehovah'S Witness ___ Bereavement ___ Communion ___ Rasheeda exploration ___ _x__ Life review _x__ Prayer ___ Reconciliation ___ Sacrament of Sick ___ Supportive presence ___ Wedding ___ Other (describe below) Pastoral Comments
== END 2019-05-01 12:03 | disposition home or self-care (01) ==
LOC: ED 15:59 → PCU 16:42
PROVIDERS: Admitting Provider Student in an Organized Health Care Education/Training Program; Emergency Provider Emergency Medicine; PCP Family Medicine; Referring Provider Family Medicine; Visit Provider Internal Medicine
DX: R07.89 Other chest pain (principal); R00.0 Tachycardia, unspecified; Z23 Encounter for immunization; K21.9 Gastro-esophageal reflux disease without esophagitis; I10 Essential (primary) hypertension; F41.9 Anxiety disorder, unspecified; Z79.899 Other long term (current) drug therapy; Z82.49 Family history of ischemic heart disease and other diseases of the circulatory system; Z87.891 Personal history of nicotine dependence
CPT/HCPCS: 36415; 71045; 78452; 80048; 80061; 84484; 85025; 85379; 93005; 93017; 96360; 96361; 99218; 99285; A9500; J7030; 90686; A4216; G0378

== ENCOUNTER 2021-07-15 10:20 | Outpatient (CLI) | payer OTHER, SELFPAY ==
[2021-07-15 12:48] LABS: Anion Gap 6 (5-15); BUN 12 mg/dL (7-18); BUN/Creat Ratio 9.7 RATIO (10-20); Calcium,Total 9.4 mg/dL (8.5-10.1); Chloride 106 mmol/L (98-107); Cholesterol 175 mg/dL (200); Creatinine, Serum 1.24 mg/dL (0.70-1.30); EST Glomerular Filtration Rate 66 mL/min (>60); Est Glom Filt Rate - Afr Amer 80 mL/min (>60); Glucose 105 mg/dL (74-106); High Density Lipoprotein 59 mg/dL; Potassium 4.3 mmol/L (3.5-5.1); Sodium Level 135 mmol/L (136-145); Triglycerides 63 mg/dL; Very Low Density Lipoprotein 13 mg/dL (5-40)
== END 2021-07-15 23:59 | disposition home or self-care (01) ==
LOC: MFPLAB 10:21
PROVIDERS: PCP Family Medicine; Referring Provider Family Medicine; Visit Provider Family Medicine
DX: I10 Essential (primary) hypertension (principal)
CPT/HCPCS: 36415; 80048; 80061

== ENCOUNTER → 2021-11-30 | Outpatient (CLI) | payer OTHER, SELFPAY ==
--- NOTE | 2021-11-30 09:00 | RAD_ITS ---
STUDY: X-RAY - LUMBAR SPINE REASON FOR EXAM: Male, 46 years old. BACK PAIN TECHNIQUE: XR Spine Lumbar Min 4 Views COMPARISON: None FINDINGS: Normal lumbar lordosis. There is no substantial scoliosis. There is a normal alignment of the vertebrae. L1 to L4: Normal vertebral bodies and endplates. Normal disc space heights. L4-5: Loss of intervertebral disc height. There is endplate spondylosis of the vertebral body. L5-S1: There is bilateral facet arthropathy. Loss of intervertebral disc height. There is endplate spondylosis of the vertebral body. Discogenic endplate changes. The soft tissue structures are unremarkable. RAD/L/S Spine Min 4 Views IMPRESSION: Degenerative changes of the spine, as detailed above. Electronically Signed: Boni Stewart MD at 15:15 EDT ,
== END | disposition home or self-care (01) ==
PROVIDERS: PCP Family Medicine; Referring Provider Family Medicine; Visit Provider Family Medicine
DX: M47.816 Spondylosis without myelopathy or radiculopathy, lumbar region (principal); M46.96 Unspecified inflammatory spondylopathy, lumbar region
CPT/HCPCS: 72110

== ENCOUNTER → 2022-01-30 | Outpatient (CLI) | payer OTHER, SELFPAY ==
--- NOTE | 2022-01-30 17:04 | MRI_ITS ---
STUDY: MRI CERVICAL SPINE WITHOUT CONTRAST REASON FOR EXAM: Male, 46 years old. CERVICALGIA, RT ARM NUMBNESS TECHNIQUE: Standardized fat and water weighted pulse sequences were obtained in the sagittal and axial planes. COMPARISON: 04/01/2018. FINDINGS: Normal foramen magnum and brainstem-cervical cord junction. Normal craniovertebral junction. Normal anterior atlantoaxial articulation. Normal odontoid process. Normal cervical lordosis. No demonstrated fracture. C2-3: Normal disc height and morphology. Normal central canal. Foramina are patent. C3-4: Normal disc height and morphology. Normal central canal. Mild left foraminal encroachment due to uncinate hypertrophy. C4-5: Normal disc height and morphology. Normal central canal. Foramina are patent. C5-6: Prior anterior fusion. Disc spacer in place. No disc protrusion. Normal central canal. Foraminal stenosis is mild on the left and severe on the right due to uncinate hypertrophy. C6-7: Normal disc height and morphology. Normal central canal. Foraminal stenosis is mild on the left and severe on the right due to uncinate hypertrophy. C7-T1: Normal disc height and morphology. Normal central canal. Mild foraminal encroachment due to uncinate hypertrophy. Normal cervical cord. Normal visualized soft tissue structures. MRI/Spine Cervical (Routine) IMPRESSION: Multilevel foraminal stenosis, greatest at C5-6 and C6-7. Postsurgical changes at C5-6. Electronically Signed: Lorraine Bar MD at 23:09 EDT Reading Location ID and State: [id number] / Tel , Service support ,
== END | disposition home or self-care (01) ==
PROVIDERS: PCP Family Medicine; Referring Provider Family Medicine; Visit Provider Family Medicine
DX: M48.02 Spinal stenosis, cervical region (principal)
CPT/HCPCS: 72141

== ENCOUNTER → 2022-07-17 | Outpatient (CLI) | payer OTHER, SELFPAY ==
[2022-07-17 12:17] LABS: Anion Gap 6 (5-15); BUN 14 mg/dL (7-18); BUN/Creat Ratio 12.8 RATIO (10-20); Calcium,Total 9.6 mg/dL (8.5-10.1); Chloride 105 mmol/L (98-107); Cholesterol 192 mg/dL (200); Creatinine, Serum 1.09 mg/dL (0.70-1.30); EST Glomerular Filtration Rate 76 mL/min (>60); Est Glom Filt Rate - Afr Amer 92 mL/min (>60); Glucose 105 mg/dL (74-106); High Density Lipoprotein 57 mg/dL; Potassium 4.1 mmol/L (3.5-5.1); Sodium Level 136 mmol/L (136-145); Triglycerides 94 mg/dL; Very Low Density Lipoprotein 19 mg/dL (5-40)
== END | disposition home or self-care (01) ==
LOC: MFPLAB 09:52
PROVIDERS: PCP Family Medicine; Visit Provider Family Medicine
DX: I10 Essential (primary) hypertension (principal)
CPT/HCPCS: 36415; 80048; 80061

== ENCOUNTER → 2022-08-14 | Outpatient (CLI) | payer OTHER, SELFPAY ==
--- NOTE | 2022-08-14 16:59 | MRI_ITS ---
INDICATION: PARATHESIA OF LEFT LEG EXAMINATION: MRI - MR Spine Lumbar W/O Contrast TECHNIQUE: Multiplanar and multisequence MR images of the lumbar spine without contrast. IV Contrast Dosage and Agent: None. COMPARISON: Lumbar spine radiograph November 30, 2021 and February 19, 2017. FINDINGS: VERTEBRAE: Normal bone marrow signal with chronic Modic 2 endplate degenerative change at L5-S1. Bilateral pars defects of L5 with minimal L5 on S1 anterolisthesis. No fracture or acute compression deformity. No aggressive osseous lesion. Preserved lumbar lordosis. CORD: Conus medullaris at L1. Imaged portion of the cord is normal in signal. Cauda equina layer dependently.. L1/L2: Normal disc height and morphology. Normal spinal canal, lateral recesses and neuroforamina. L2/L3: Normal disc height and morphology. Normal spinal canal, lateral recesses and neuroforamina. L3/L4: Normal disc height and morphology. Normal spinal canal, lateral recesses and neuroforamina. L4/L5: Disc desiccation with slight posterior disc bulge without significant spinal stenosis. Mild left lateral recess narrowing. Mild bilateral neural foraminal narrowing.. L5/S1: Disc desiccation and height loss with small broad-based posterior disc protrusion and moderate bilateral facet arthropathy, together causing no significant central spinal canal stenosis. Moderate bilateral neural foraminal stenosis with exiting L5 nerve roots likely contacting posterior elements and disc. SOFT TISSUES: Unremarkable. MRI/Spine Lumbar (Routine) IMPRESSION: L4-5 and L5-S1 spondylosis and bilateral L5 pars defects with minimal grade 1 anterolisthesis. Together findings cause moderate to severe bilateral neural foraminal stenosis at L5-S1 with L5 nerve roots likely contacting disc and posterior elements. Also mild left lateral recess narrowing at L4-5 with disc approximating the anterior L5 nerve rootlets. Electronically Signed: Lester Doran MD at 5:28 EDT ,
== END | disposition home or self-care (01) ==
LOC: MRI 16:56
PROVIDERS: PCP Family Medicine; Referring Provider Family Medicine; Visit Provider Family Medicine
DX: R20.2 Paresthesia of skin (principal)
CPT/HCPCS: 72148

== ENCOUNTER → 2023-01-17 | Outpatient (CLI) | payer OTHER, SELFPAY ==
[2023-01-17 10:44] LABS: Anion Gap 4 (5-15); BUN 11 mg/dL (7-18); BUN/Creat Ratio 10.1 RATIO (10-20); Calcium,Total 8.9 mg/dL (8.5-10.1); Chloride 107 mmol/L (98-107); Cholesterol 190 mg/dL (200); Creatinine, Serum 1.09 mg/dL (0.70-1.30); EST Glomerular Filtration Rate 76 mL/min (>60); Est Glom Filt Rate - Afr Amer 92 mL/min (>60); Glucose 97 mg/dL (74-106); High Density Lipoprotein 58 mg/dL; Potassium 4.1 mmol/L (3.5-5.1); Sodium Level 137 mmol/L (136-145); Triglycerides 106 mg/dL; Very Low Density Lipoprotein 21 mg/dL (5-40)
== END | disposition home or self-care (01) ==
LOC: MFPLAB 08:29
PROVIDERS: PCP Family Medicine; Visit Provider Family Medicine
DX: I10 Essential (primary) hypertension (principal)
CPT/HCPCS: 36415; 80048; 80061

== ENCOUNTER → 2023-02-15 | Outpatient (CLI) | payer OTHER, SELFPAY ==
--- NOTE | 2023-02-15 10:21 | RAD_ITS ---
STUDY: X-RAY - PELVIS AND LEFT HIP REASON FOR EXAM: Male, 47 years old. LEFT HIP PAIN TECHNIQUE: 3 views of the pelvis and hip. COMPARISON: None. FINDINGS: There is a non-specific bowel gas pattern. Normal visualized soft tissue structures. Normal bilateral iliac wings, sacroiliac joints and visualized sacrum. Normal bilateral superior and inferior pubic rami. Normal pubic symphysis. Normal bilateral ischial tuberosities. Normal visualized femoral head. Normal acetabulum. Normal hip joint. RAD/HIP, UNI W/ Pelvis 2-3 Views IMPRESSION: Normal x-ray examination of the pelvis and hip. Electronically Signed: Mingo Whitehead MD at 11:17 EDT ,
== END | disposition home or self-care (01) ==
LOC: RAD 10:20
PROVIDERS: PCP Family Medicine; Referring Provider Anesthesiology Pain Medicine; Visit Provider Anesthesiology Pain Medicine
DX: M25.552 Pain in left hip (principal)
CPT/HCPCS: 73502

== ENCOUNTER → 2023-08-17 | Outpatient (CLI) | payer OTHER, SELFPAY ==
[2023-08-17 10:32] LABS: ALB/GLOB Ratio 0.9 RATIO (0.9-2.4); AST(SGOT) 150 U/L (15-37); Alanine Aminotransfer ALT/SGPT 229 U/L (16-61); Albumin, Serum 3.7 g/dL (3.2-5.0); Alkaline Phosphatase 104 U/L (45-117); Anion Gap 7 (5-15); BUN 14 mg/dL (7-18); BUN/Creat Ratio 12.5 RATIO (10-20); Calcium,Total 9.1 mg/dL (8.5-10.1); Chloride 107 mmol/L (98-107); Cholesterol 219 mg/dL (200); Creatinine, Serum 1.12 mg/dL (0.70-1.30); EST Glomerular Filtration Rate 74 mL/min (>60); Est Glom Filt Rate - Afr Amer 89 mL/min (>60); Globulin 3.9 g/dL (2.2-4.2); Glucose 114 mg/dL (74-106); High Density Lipoprotein 48 mg/dL; Protein, Total 7.6 g/dL (6.4-8.2); Sodium Level 139 mmol/L (136-145); Triglycerides 173 mg/dL; Very Low Density Lipoprotein 35 mg/dL (5-40)
[2023-08-17 17:28] LABS: Hemoglobin A1c 5.6 % (3.8-5.6)
== END | disposition home or self-care (01) ==
LOC: MTLAB 08:33
PROVIDERS: PCP Family Medicine; Referring Provider Family Medicine; Visit Provider Family Medicine
DX: I10 Essential (primary) hypertension (principal); R73.09 Other abnormal glucose
CPT/HCPCS: 36415; 80053; 80061; 83036

== ENCOUNTER → 2024-02-20 | Outpatient (CLI) | payer OTHER, SELFPAY ==
[2024-02-20 10:19] LABS: AST(SGOT) 71 U/L (15-37); Alanine Aminotransfer ALT/SGPT 131 U/L (16-61); Albumin, Serum 3.8 g/dL (3.2-5.0); Alkaline Phosphatase 79 U/L (45-117); Anion Gap 3 (5-15); BUN 14 mg/dL (7-18); BUN/Creat Ratio 13.2 RATIO (10-20); Calcium,Total 9.4 mg/dL (8.5-10.1); Chloride 107 mmol/L (98-107); Cholesterol 196 mg/dL (200); Creatinine, Serum 1.06 mg/dL (0.70-1.30); EST Glomerular Filtration Rate 78 mL/min (>60); Est Glom Filt Rate - Afr Amer 95 mL/min (>60); Glucose 115 mg/dL (74-106); High Density Lipoprotein 55 mg/dL; Potassium 3.9 mmol/L (3.5-5.1); Protein, Total 7.8 g/dL (6.4-8.2); Sodium Level 137 mmol/L (136-145); Triglycerides 89 mg/dL; Very Low Density Lipoprotein 18 mg/dL (5-40)
== END | disposition home or self-care (01) ==
LOC: MFPLAB 08:23
PROVIDERS: PCP Family Medicine; Referring Provider Family Medicine; Visit Provider Family Medicine
DX: I10 Essential (primary) hypertension (principal); R74.01 Elevation of levels of liver transaminase levels
CPT/HCPCS: 36415; 80053; 80061